=== PATIENT | female | born 1980 | race Caucasian/White ===

== ENCOUNTER 2021-09-08 17:57 | Emergency (ER) | payer BC ==
[~2021-09-08 17:57] MED LIST: ALDACTONE100 MG PO; COLACE100 MG PO; EVENING PRIMR1000 MG PO; GLUCOPHAGE1000 MG PO; IBU600 MG PO; MULTIVITAMINS1 EAC1 PO; NORCO 5-325 TA1 EACH PO; VITAMIN D-32000 UNI1 PO
[2021-09-08 19:54] LABS: HEMOGLOBIN 12.5 gm/dl (12.3-15.3); RED BLOOD COUNT 4.4 M/UL (4.00-5.10); WHITE BLOOD COUNT 10.6 K/UL (4.5-11.0)
[2021-09-08 20:22] LABS: BUN/CREATININE RATIO 19 (0-10)
== END 2021-09-09 02:27 | disposition home or self-care (01) ==
LOC: ER1 17:57
PROVIDERS: Physician Assistant
DX: R07.9 Chest pain, unspecified (principal); I10 Essential (primary) hypertension; Z90.49 Acquired absence of other specified parts of digestive tract; Z88.2 Allergy status to sulfonamides
CPT/HCPCS: 71045; 80053; 82550; 82553; 83874; 84484; 85025; 85379; 93005; 99285; Q9967

== ENCOUNTER 2021-11-30 10:25 | Emergency (ER) | payer BC ==
[2021-11-30 11:29] LABS: HEMOGLOBIN 13.7 gm/dl (12.3-15.3); RED BLOOD COUNT 4.71 M/UL (4.00-5.10); WHITE BLOOD COUNT 5.2 K/UL (4.5-11.0)
[2021-11-30 11:55] LABS: BUN/CREATININE RATIO 27 (0-10)
== END 2021-11-30 13:40 | disposition home or self-care (01) ==
LOC: ER1 10:25
PROVIDERS: Nurse Practitioner
DX: R29.898 Other symptoms and signs involving the musculoskeletal system (principal); I10 Essential (primary) hypertension; Z88.2 Allergy status to sulfonamides
CPT/HCPCS: 70450; 71045; 72125; 80053; 80307; 81001; 82550; 82553; 83735; 84439; 84443; 84484; 85025; 87086; 93005; 99285

== ENCOUNTER → 2021-12-23 | Outpatient (CLI) | payer BC | LOC: KOH-I 15:22 | DX: M47.812 Spondylosis without myelopathy or radiculopathy, cervical region (principal); M47.26 Other spondylosis with radiculopathy, lumbar region | CPT/HCPCS: 72040; 72110 ==

== ENCOUNTER → 2022-04-13 | Outpatient (CLI) | payer BC, OTHER | LOC: MRI 04-09 09:00 → KOH-I 04-09 09:00 → EMI 09:00 | DX: Q07.00 Arnold-Chiari syndrome without spina bifida or hydrocephalus (principal); M51.24 Other intervertebral disc displacement, thoracic region; G95.29 Other cord compression | CPT/HCPCS: 70553; 72146; A9577 ==